=== PATIENT | male | born 1995 | race Two or more races ===

== ENCOUNTER 2020-03-17 15:47 | Emergency (ER) | payer SELFPAY ==
[2020-03-17 17:25] LABS: APPEARANCE,URINE SLIGHTLY-CLOUDY; BILIRUBIN,URINE NEGATIVE (NEGATIVE); COLOR,URINE YELLOW; GLUCOSE, URINE NEGATIVE (NEGATIVE); KETONES,URINE NEGATIVE (NEGATIVE); LEUKOCYTE ESTERASE,URINE MODERATE (NEGATIVE); NITRITE,URINE NEGATIVE (NEGATIVE); PROTEIN,URINE NEGATIVE (NEGATIVE); URINE SPECIFIC GRAVITY 1.028; UROBILINOGEN,URINE NEGATIVE mg/dL (<2.0)
[2020-03-17] MEDS ORDERED: LIDOCAINE 1% INJ-PF (10 MG/ML) 30 ML SDV IM ONE (17:44)
[2020-03-17] MEDS ORDERED: CEFTRIAXONE INJ 250 MG VIAL IM ONE (17:44)
[2020-03-17] MEDS ORDERED: METRONIDAZOLE 500 MG TABLET PO ONE (17:45)
[2020-03-17] MEDS ORDERED: AZITHROMYCIN 250 MG TABLET PO ONE (17:45)
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
[2020-03-17 18:18] VITALS: BP 135/90
== END 2020-03-17 18:18 | disposition home or self-care (01) ==
LOC: ER 15:47
DX: R36.9 Urethral discharge, unspecified (principal); L29.9 Pruritus, unspecified; Z20.2 Contact with and (suspected) exposure to infections with a predominantly sexual mode of transmission
CPT/HCPCS: 99284; 96372; 87086; 81001; J3490; J0696